=== PATIENT | male | born 1990 | race Caucasian/White ===

== ENCOUNTER 2025-05-07 02:23 | Emergency (ER) | payer MEDICAID ==
[~2025-05-07] VITALS: Ht 170.2 cm; Wt 84.0 kg
[2025-05-07 02:25] VITALS: O2SAT 100
[2025-05-07 02:31] VITALS: BP 138/98; PULSE 77; RESP 18; TEMP 36.8; O2SAT 99
[2025-05-07 03:33] LABS: BASOPHILS % 0.5 % (0.0-2.0); HEMATOCRIT. 43.5 % (42.0-52.0); HEMOGLOBIN. 14.7 g/dL (14.0-18.0); LYMPHOCYTES % 17.6 % (20.0-50.0); MEAN CORPUSCULAR HEMOGLOBIN 31.7 pg (28.0-32.0); MEAN CORPUSCULAR HGB CONC 33.8 g/dL (31.0-37.0); MEAN CORPUSCULAR VOLUME 93.8 fL (80.0-94.0); MEAN PLATELET VOLUME 8.5 fl (7.4-10.4); MONOCYTES % 6.2 % (2.0-8.0); NEUTROPHILS % 72.7 % (40.0-76.0); PLATELET 241 x1000/uL (130-400); RED BLOOD CELL COUNT 4.64 mill/uL (4.7-6.1); RED CELL DISTRIBUTION WIDTH 13.2 % (11.6-14.6); WHITE BLOOD COUNT 9.7 x1000/uL (4.5-11.0)
[2025-05-07 03:44] LABS: CHLORIDE 102 mEq/L (98-107); POTASSIUM 4.4 mEq/L (3.5-5.1); SODIUM 140 mEq/L (136-145)
[2025-05-07 03:45] LABS: CARBON DIOXIDE 30 mEq/L (21-32)
[2025-05-07 03:46] LABS: CALCIUM 9.2 mg/dL (8.7-10.4)
[2025-05-07 03:50] LABS: GLUCOSE 94 mg/dL (70-105); UREA NITROGEN BLOOD 13 mg/dL (9-23)
[2025-05-07 05:52] LABS: CLARITY URINE TURBID (CLEAR); COLOR URINE YELLOW (YELLOW); GLUCOSE URINE NEGATIVE (NEGATIVE); KETONES URINE NEGATIVE (NEGATIVE); LEUKOCYTE ESTERASE URINE NEGATIVE (NEGATIVE); NITRITE URINE NEGATIVE (NEGATIVE); OCCULT BLOOD URINE NEGATIVE (NEGATIVE); PH URINE 7.5 (4.5-8.0); PROTEIN URINE NEGATIVE (NEGATIVE); SPECIFIC GRAVITY URINE 1.021 (1.005-1.030); UROBILINOGEN URINE 0.2 E.U./dL (0.2-1.0)
[2025-05-07 06:09] LABS: ALANINE AMINOTRANSFERASE 25 IU/L (10-49); ALBUMIN 4.6 g/dL (3.2-4.8); ASPARTATE AMINOTRANSFERASE 25 IU/L (<34); BILIRUBIN DIRECT < 0.1 mg/dL (<=3.0); BILIRUBIN TOTAL 0.3 mg/dL (0.1-1.0); PROTEIN TOTAL 7.2 g/dL (6.0-8.3)
[2025-05-07] MEDS: ACETAMINOPHEN 325MG TABLET PO ONE (06:10)
[2025-05-07] MEDS: KETOROLAC 30MG/ML VIAL IM ONE (06:11)
[2025-05-07] MEDS ORDERED: FAMO40TA7 MT (06:47)
[2025-05-07] MEDS ORDERED: SIME80TA15 MT (06:47)
[2025-05-07 07:26] LABS: BACTERIA URINE NONE SEEN; RBC URINE NONE SEEN /hpf (0-2); SQUAMOUS EPITHELIAL CELL URINE NONE SEEN /lpf (RARE/1+); WBC URINE NONE SEEN /hpf (0-2)
[2025-05-07 07:27] LABS: AMORPHOUS SEDIMENT URINE 1+ /lpf
== END 2025-05-07 06:45 | disposition home or self-care (01) ==
LOC: ER 02:23
DX: K21.9 Gastro-esophageal reflux disease without esophagitis (principal); K57.30 Diverticulosis of large intestine without perforation or abscess without bleeding; R16.0 Hepatomegaly, not elsewhere classified; R10.84 Generalized abdominal pain
CPT/HCPCS: 99285; 74176; 71045; 80076; 80048; 81003; 83690; 85025; 36415; 96372; J1885